=== PATIENT | female | born 1965 | race Caucasian/White ===

== ENCOUNTER → 2017-01-20 | Outpatient (CLI) | payer BC ==
[2017-01-20 10:22] LABS: CH 30.9; CHCM 33.8; HCT 41.5 % (34.0-46.0); HDW 2.47; HGB 14.2 gm/dL (11.4-16.0); MCH 31.4 pg (25.0-35.0); MCHC 34.2 g/dL (31.0-37.0); Mean Platelet Volume 7.1; RBC 4.52 m/uL (3.80-5.40); RDW 12.9 % (11.5-15.5); WBC 5.3 k/uL (3.8-10.6)
[2017-01-20 10:51] LABS: ALT 40 U/L (9-52); AST 45 U/L (14-36); Alkaline Phosphatase 77 U/L (38-126); Anion Gap 10 mmol/L; Blood Urea Nitrogen 16 mg/dL (7-17); Calcium 9.6 mg/dL (8.4-10.2); Carbon Dioxide 25 mmol/L (22-30); Chloride 104 mmol/L (98-107); Cholesterol 189 mg/dL (<200); Glucose 81 mg/dL (74-99); HDL Cholesterol 97 mg/dL (40-60); Non-African American GFR(MDRD) >60 (>60 ml/min/1.73 sqM); Potassium 4.2 mmol/L (3.5-5.1); Sodium 139 mmol/L (137-145); Total Bilirubin 0.9 mg/dL (0.2-1.3)
--- NOTE | 2017-01-21 11:24 | MM ---
Reason for exam: screening (asymptomatic). Last mammogram was performed 2 years and 1 month ago. History: Patient history of other cancer. Implant Removal of both breasts, 2010. Taking hormonal contraceptives for 23 years beginning at age 21. Physical Findings: A clinical breast exam by your physician is recommended on an annual basis and results should be correlated with mammographic findings. MG Screening Mammo w CAD Bilateral CC and MLO view(s) were taken. Prior study comparison: December 18, 2014, bilateral MG screening mammo w CAD. September 19, 2013, CAD bilateral diagnostic mammogram. May 06, 2012, bilateral digital screening mammo w/CAD. The breast tissue is heterogeneously dense. This may lower the sensitivity of mammography. No suspicious abnormality. No significant changes when compared with prior studies. ASSESSMENT: Negative, BI-RAD 1 RECOMMENDATION: Routine screening mammogram of both breasts in 1 year.
== END | disposition home or self-care (01) ==
LOC: RADMAMWWP 09:00
PROVIDERS: ATTEND Obstetrics & Gynecology
DX: Z12.31 Encounter for screening mammogram for malignant neoplasm of breast (principal); E78.4 Other hyperlipidemia
CPT/HCPCS: 80061; 80053; 85027; G0202

== ENCOUNTER → 2022-01-02 | Outpatient (CLI) | payer BC ==
[2022-01-02 14:07] LABS: Basophils # (A) 0.03 X 10*3/uL (0.00-0.10); Basophils % (A) 0.7 %; Eosinophils # (A) 0.22 X 10*3/uL (0.04-0.35); Eosinophils % (A) 5.2 %; HGB 14.1 g/dL (12.0-15.0); Immature Grans, Automated 0.5 %; Lymphocytes # (A) 1.49 X 10*3/uL (0.90-5.00); Lymphocytes % (A) 35.3 %; MCH 30.1 pg (27.0-32.0); MCV 93.8 fL (80.0-97.0); Mean Platelet Volume 11.1 fL (9.5-12.2); Monocytes # (A) 0.27 X 10*3/uL (0.20-1.00); Monocytes % (A) 6.4 %; NRBC Per 100 WBC 0 /100 WBCS (0.0-0.0); Neutrophils # (A) 2.19 X 10*3/uL (1.80-7.70); Neutrophils % (A) 51.9 %; Platelet Count 222 X 10*3/uL (140-440); RBC 4.69 X 10*6/uL (4.10-5.20); RDW 12.4 % (11.5-14.5); WBC 4.22 X 10*3/uL (4.50-10.00)
[2022-01-02 14:30] LABS: Estradiol 34.9 pg/mL; Follicle Stimulating Hormone 27.1 mIU/mL
== END | disposition home or self-care (01) ==
LOC: LABWHC1 10:08
PROVIDERS: ATTEND Obstetrics & Gynecology
DX: Z01.818 Encounter for other preprocedural examination (principal); R94.31 Abnormal electrocardiogram [ECG] [EKG]
CPT/HCPCS: 36415; 82670; 83001; 85025; 93005

== ENCOUNTER 2022-01-09 06:01 | Day surgery (SDC) | payer BC ==
--- NOTE | 2022-01-08 08:04 | P.HPOB ---
History of Present Illness H&P Date: 01/08/22 Chief Complaint: Postmenopausal bleeding, endometrial thickening This patient is a pleasant 56 yr female who has been menopausal for approximately 9 months and started on hormone replacement therapy. She began having bleeding and an ultrasound showed the endometrium to be 12mm and a 1.6cm endometrial polyp. She now presents for a hysteroscopy and D&C for further evaluation and treatment. Hormone levels were equivocal. Review of Systems Menstruation: Reports as per HPI, Reports postmenopausal Past Medical History Additional Past Medical History / Comment(s): History of melanoma. History of Any Multi-Drug Resistant Organisms: None Reported Past Surgical History: Breast Surgery Additional Past Surgical History / Comment(s): Removal melanoma left leg. Labiaplasty Past Anesthesia/Blood Transfusion Reactions: No Reported Reaction Past Psychological History: No Psychological Hx Reported Smoking Status: Never smoker Past Alcohol Use History: None Reported Past Drug Use History: None Reported Medications and Allergies Home Medications Medication Instructions Recorded Confirmed Type Estrogen,Con/M-Progest Acet 01/08/22 History [Prempro 0.625-2.5 mg Tablet] Levothyroxine Sodium [Synthroid] 25 mcg PO DAILY 01/08/22 01/08/22 History Allergies Allergy/AdvReac Type Severity Reaction Status Date / Time No Known Allergies Allergy Verified 01/08/22 07:58 Exam - OBG Physical Exam Abdomen: bowel sounds normal, no diffuse tenderness, no bruit present, no guarding noted, no hepatomegaly, no splenomegaly, no mass Vulva: both: normal Vagina: normal moisture, no discharge Cervix: no lesion, no discharge Uterus: normal size, normal contour Results Ultrasound and labs as above Assessment and Plan Assessment: This is a pleasant 56 yr female with postmenopausal bleeding on hormone replacement therapy and ultrasound with endometrial thickening/endometrial polyp. Plan is hysteroscopy and D&C for further evaluation and treatment. I have discussed this surgery and risks: infection, bleeding, possible uterine perforation. All of her questions were answered and a written consent obtained. (1) Postmenopausal bleeding Status: Acute Code(s): N95.0 - POSTMENOPAUSAL BLEEDING SNOMED Code(s): 80190255 (2) Endometrial polyp Status: Acute Code(s): N84.0 - POLYP OF CORPUS UTERI SNOMED Code(s): 85752749
[2022-01-08 11:47] VITALS: BMI 24.2
[~2022-01-09 06:01] MED LIST: Pre Op ABX Message 1 EACH MISC MISCELLANE ONE
[2022-01-09] MEDS ORDERED: MIDAZOLAM 2 MG/2 ML VIAL IV PRN (06:02)
[2022-01-09] MEDS ORDERED: DEXAMETHASONE SOD PHOSPHATE 4 MG/ML 1 ML VIAL IV ONE (06:02)
[2022-01-09] MEDS ORDERED: LIDOCAINE 1% (10MG/ML) FOR IV START INTRADERMA PRN (06:02)
[2022-01-09] MEDS ORDERED: LACTATED RINGERS 1,000 ML IV SCH (06:02)
[2022-01-09] MEDS ORDERED: ONDANSETRON 4 MG/2 ML VIAL IVP ONE (06:02)
[2022-01-09] MEDS ORDERED: LACTATED RINGERS 1,000 ML IV ONE ×3 (06:40→07:50)
[2022-01-09] MEDS ORDERED: MIDAZOLAM 2 MG/2 ML VIAL ONE (06:54)
[2022-01-09] MEDS ORDERED: KETOROLAC 15 MG/ML 1 ML VIAL ONE (06:54)
[2022-01-09] MEDS ORDERED: fentaNYL (PF) 50 MCG/ML 2 ML AMP ONE (06:54)
[2022-01-09] MEDS ORDERED: LIDOCAINE 2% INJ 20 MG/ML (2 ML VIAL) ONE (06:54)
[2022-01-09] MEDS ORDERED: PROPOFOL 10 MG/ML 20 ML VIAL IV ONE (06:54)
[2022-01-09] MEDS ORDERED: HYDROmorphone 0.5 MG/0.5 ML SYRINGE IVP PRN (07:00)
--- NOTE | 2022-01-09 07:36 | P.OP ---
Date of Procedure: 01/09/22 Preoperative Diagnosis: #1: Postmenopausal bleeding. #2: Endometrial thickening/polyps on ultrasound Postoperative Diagnosis: Same Procedure(s) Performed: #1: Hysteroscopy. #2: Dilation and curettage Anesthesia: MAC Surgeon: Mansoor Candelaria Estimated Blood Loss (ml): 20 IV fluids (ml): 20 Pathology: other (Uterine curettings) Condition: stable Disposition: PACU Indications for Procedure: Please see dictated H&P for intimate details of this patient's admission. Brief summary this pleasant 56-year-old multiparous patient postmenopausal bleeding on hormone therapy had an ultrasound that showed endometrial thickening and findings suggestive of endometrial polyp. Patient is now presenting for hysteroscopy D&C for further evaluation and treatment. Patient does understand the surgery and risks and risks of infection, bleeding, possible uterine pe rforation. All the patient's questions are answered and a written consent is obtained. Operative Findings: This patient had 2 benign appearing polyps in the endometrial cavity. Description of Procedure: This patient is taken to the operating room where she is laid in the supine position. She subsequently was general mask anesthesia without incident. With an adequate level of anesthesia she has has a vaginal and perineal prep and drape. Examination under anesthesia shows a mid position uterus of normal size. Bladder is drained at this time for 20 mL of clear urine. Weighted speculum was placed in the posterior vagina. The anterior lip of the cervix is then grasped with an Allis clamp. Uterus is gently sounded to 8 cm. Gentle dilation is done at this time to allow the hysteroscope easily into the uterine cavity. Hysteroscopy is performed with saline solution. There were 2 polyps in the fundal and mid uterine area that looked to be about 1-1-1/2 cm. These appear benign. The hysteroscope was then removed. Cervix is dilated more to allow the polyp forceps into the uterine cavity. Multiple passes are made in multiple pieces of these polyps are removed. A vigorous gentle 4 quadrant curettage is then done for adequate sampling. All this tissue is sent off to the pathologist. The lining does feel smooth and feels as though the polyps have been removed. At this time the procedure is ended. There are no complications. All counts are correct 3. Patient is awakened and taken to the recovery room in satisfactory condition.
[2022-01-09 07:39] VITALS: TEMP 97
[2022-01-09 09:02] VITALS: BP 140/77; PULSE 70; RESP 18
== END 2022-01-09 09:06 | disposition home or self-care (01) ==
LOC: OR 06:01
PROVIDERS: ATTEND Obstetrics & Gynecology
DX: N95.0 Postmenopausal bleeding (principal); R93.89 Abnormal findings on diagnostic imaging of other specified body structures; N84.0 Polyp of corpus uteri; Z85.820 Personal history of malignant melanoma of skin; Z98.890 Other specified postprocedural states; Z79.3 Long term (current) use of hormonal contraceptives; Z79.890 Hormone replacement therapy
CPT/HCPCS: 81025; 88305; 58558; J2250; J3010; J1885; J2704; J1170; J2001

== ENCOUNTER → 2023-02-12 | Outpatient (CLI) | payer BC ==
[2023-02-12 12:39] LABS: HCT 43.8 % (34.0-46.0); HGB 14.3 gm/dL (11.4-16.0); MCH 30.9 pg (25.0-35.0); MCHC 32.7 g/dL (31.0-37.0); MCV 94.5 fL (80.0-100.0); Mean Platelet Volume 7.4; Platelet Count 209 k/uL (150-450); RBC 4.64 m/uL (3.80-5.40); RDW 12.4 % (11.5-15.5); WBC 4.6 k/uL (3.8-10.6)
[2023-02-12 20:52] LABS: ALT 34 U/L (8-44); AST 35 U/L (13-35); Albumin/Globulin Ratio 2.38 Ratio (1.60-3.17); Alkaline Phosphatase 76 U/L (41-126); BUN/Creat Ratio 18.22 Ratio (12.00-20.00); Blood Urea Nitrogen 16.4 mg/dL (9.0-27.0); Calcium 9.7 mg/dL (8.7-10.3); Carbon Dioxide 24.5 mmol/L (21.6-31.8); Chloride 104 mmol/L (96-109); Globulin 2.1 d/dL (1.6-3.3); Glucose 94 mg/dL (70-110); Potassium 4.1 mmol/L (3.5-5.5); Sodium 142 mmol/L (135-145); T4, Free (Free Thyroxine) 1.21 ng/dL (0.80-1.80); Testosterone <10.00 ng/dL (7.00-45.62); Total Bilirubin 0.3 mg/dL (0.3-1.2); Total Protein 7.1 d/dL (6.2-8.2)
[2023-02-12 21:51] LABS: Estradiol <20.0 pg/mL
[2023-02-12 22:30] LABS: Follicle Stimulating Hormone 43.3 mIU/mL
--- NOTE | 2023-02-15 08:10 | MM ---
Reason for Exam: Screening (asymptomatic). Last mammogram was performed 1 year(s) and 4 month(s) ago. Patient History: Menarche at age 13. First Full-Term at age 31. Late child-bearing (after 31). Postmenopausal. Patient has history of breast feeding. Hormonal Contraceptives, starting at age 21 for 23 years. 2009, Bilateral Implant Removal. Risk Values: Paige 5 year model risk: 1.7%. NCI Lifetime model risk: 10.9%. Prior Study Comparison: 12/18/2014 Bilateral Screening Mammogram, [facility]. 01/20/2017 Bilateral Screening Mammogram, [facility]. 10/20/2021 Bilateral MG screening mammo w CAD, [facility]. Tissue Density: The breast tissue is heterogeneously dense. This may lower the sensitivity of mammography. Findings: Analyzed By CAD. There is no suspicious group of microcalcifications or new suspicious mass. Overall Assessment: Negative, BI-RAD 1 Management: Screening Mammogram of both breasts in [address] [facility] will attempt to contact patient to return for supplemental views and ultrasound if indicated. Patient should continue monthly self-breast exams. A clinical breast exam by your physician is recommended on an annual basis. This exam should not preclude additional follow-up of suspicious palpable abnormalities. Note on Paige scores and lifetime risk: 1. A Paige score greater than 3% is considered moderate risk. If this is the case, consider specialist referral to assess eligibility for a risk reducing agent. 2. If overall lifetime risk for the development of breast cancer is 20% or higher, the patient may qualify for future screening with alternating mammogram and breast MRI. Electronically signed and approved by: Titi Edwards DO
== END | disposition home or self-care (01) ==
LOC: RADMAMWWP 11:39
PROVIDERS: ATTEND Obstetrics & Gynecology
DX: Z12.31 Encounter for screening mammogram for malignant neoplasm of breast (principal); Z78.0 Asymptomatic menopausal state
CPT/HCPCS: 77063; 77067; 80053; 82670; 83001; 84144; 84403; 84439; 84443; 84481; 85027